=== PATIENT | female | born 1965 | race Caucasian/White ===

== ENCOUNTER 2022-10-21 20:24 | Emergency (ER) | payer OTHER ==
[~2022-10-21] VITALS: Ht 162.6 cm; Wt 86.2 kg
[2022-10-21] MEDS ORDERED: LEXAPRO5 MG PO (20:51)
[2022-10-21] MEDS ORDERED: NEXIUM40 M1 PO (20:51)
[2022-10-21] MEDS ORDERED: DUPIXENT200 MG/1.1 (20:52)
== END 2022-10-22 02:10 | disposition home or self-care (01) ==
LOC: ER 20:24
DX: S60.222A Contusion of left hand, initial encounter (principal); S60.212A Contusion of left wrist, initial encounter; S90.01XA Contusion of right ankle, initial encounter; S90.31XA Contusion of right foot, initial encounter; S80.01XA Contusion of right knee, initial encounter; V19.9XXA Pedal cyclist (driver) (passenger) injured in unspecified traffic accident, initial encounter; Y93.89 Activity, other specified; Y92.89 Other specified places as the place of occurrence of the external cause; Y99.9 Unspecified external cause status

== ENCOUNTER 2023-09-04 09:25 | Emergency (ER) | payer OTHER ==
[~2023-09-04] VITALS: Ht 160 cm; Wt 79.4 kg
[~2023-09-04 09:25] MED LIST: DUPIXENT200 MG/1.1; LEXAPRO5 MG PO; NEXIUM40 M1 PO
[2023-09-04] MEDS ORDERED: 0.9 % SODIUM CHLORIDE 1,000 ML IV STA (10:35)
[2023-09-04] MEDS ORDERED: OxyCODONE HCL/APAP UD (PERCOCET) PO ONE (10:45)
[2023-09-04] MEDS ORDERED: CIPROFLOXACIN IN 5 % DEXTROSE 400 MG/200 ML PIGGYBAG IV ONE (10:45)
[2023-09-04] MEDS ORDERED: METRONIDAZOLE/SODIUM CHLORIDE 500 MG/100 ML PIGGYBACK IV ONE (10:45)
[2023-09-04 10:59] LABS: HEMOGLOBIN 14.2 g/dL (12.0-15.00); MEAN CELL VOLUME 89.2 fL (80.00-100.00); MEAN CORPUSCULAR HEMOGLOBIN 30.2 pg (27.00-32.0); MEAN CORPUSCULAR HGB CONC 33.9 g/dl (32.0-36.0); PLATELET COUNT 244 K/uL (150-450)
[2023-09-04 12:25] LABS: ALBUMIN 3.7 gm/dL (3.4-5.0); BILIRUBIN TOTAL 0.56 mg/dL (0.3-1.2); CALCIUM 8.8 mg/dL (8.5-10.1); CREATININE SERUM 0.68 mg/dL (0.55-1.02); GFR 88.26; GLOBULINA 3.8 G/DL (2.4-3.5); POTASSIUM 3.94 mEq/L (3.5-5.1); TOTAL PROTEIN 7.5 gm/dL (6.4-8.2)
== END 2023-09-04 14:21 | disposition home or self-care (01) ==
LOC: ER 09:25
PROVIDERS: Emergency Medicine
DX: A09 Infectious gastroenteritis and colitis, unspecified (principal); Z88.6 Allergy status to analgesic agent

== ENCOUNTER 2023-10-15 09:05 | Outpatient (CLI) | payer OTHER | END 2023-10-15 09:14 | disposition home or self-care (01) | LOC: RAD 09:05 | PROVIDERS: ATTEND General Practice | DX: R05.9 Cough, unspecified (principal) ==